=== PATIENT | male | born 1990 | race African-American/Black ===

== ENCOUNTER 2024-01-10 13:03 | Emergency (ER) | payer OTHER ==
[2024-01-10 13:11] VITALS: RESP 18; TEMP 98.1
[2024-01-10] MEDS: ACETAMINOPHEN TAB 500 MG TAB PO STA (13:52)
[2024-01-10] MEDS: IBUPROFEN 800 MG TAB PO STA (13:53)
[2024-01-10] MEDS: CEPHALEXIN 500 MG CAP PO STA (13:53)
--- NOTE | 2024-01-10 13:53 | ED ---
Wound/Laceration HPI - General Chief Complaint: Wound/Laceration Stated Complaint: L Finger Injury Time Seen by Provider: 01/10/24 13:17 Source: patient, RN notes reviewed Mode of arrival: ambulatory Limitations: no limitations - History of Present Illness Initial Comments: This is a 34-year-old male who presents to the emergency department for an injury to his left fourth finger. Patient was cutting steak 3 days ago causing an avulsion to the tip of the left fourth finger. He did not have this evaluated at that time and has since had increasing pain. Also reports a cough and congestion starting today and would like to be tested for COVID. He did just go to check into [facility] and has been around other sick individuals there. Denies any fevers, chills, chest pain, or shortness of breath. - Related Data Previous Rx's Medication Instructions Recorded Cephalexin [Keflex] 500 mg PO Q6HR 7 Days #28 cap 01/10/24 Nirmatrelvir/Ritonavir [Paxlovid 1 pack PO BID 5 Days #30 tab 01/10/24 300-100 mg Dose Pack] Allergies Allergy/AdvReac Type Severity Reaction Status Date / Time No Known Allergies Allergy Verified 01/10/24 13:05 Review of Systems ROS Statement: Those systems with pertinent positive or pertinent negative responses have been documented in the HPI. ROS Other: All systems not noted in ROS Statement are negative. Past Medical History Past Medical History: No Reported History Past Surgical History: Hernia Repair Smoking Status: Never smoker Past Alcohol Use History: Occasional Past Drug Use History: Cocaine General Exam Limitations: no limitations General appearance: alert, in no apparent distress Head exam: Present: atraumatic, normocephalic, normal inspection Respiratory exam: Present: normal lung sounds bilaterally. Absent: respiratory distress, wheezes, rales, rhonchi, stridor Cardiovascular Exam: Present: regular rate, normal rhythm, normal heart sounds. Absent: systolic murmur, diastolic murmur, rubs, gallop, clicks Neurological exam: Present: alert, oriented X3, CN II-XII intact Psychiatric exam: Present: normal affect, normal mood Skin exam: Present: other (Skin avulsion to the tip of the left fourth finger. Mild surrounding swelling and erythema. Overlying tenderness.) Course Vital Signs 01/10/24 01/10/24 13:05 15:44 Temperature 98.1 F Pulse Rate 79 66 Respiratory 18 18 Rate Blood Pressure 125/73 115/66 O2 Sat by Pulse 97 98 Oximetry Medical Decision Making - Medical Decision Making This is a 34 year old male who presents to the emergency department for a finger injury and cough. Was pt. sent in by a medical professional or institution? @ -[facility] Did you speak to anyone other than the patient for history? @ -No Did you review nursing and triage notes? @ -Yes, and I agree, it is accurate with regards to the patient's symptoms. Were old charts reviewed? @ -No Differential Diagnosis? @ -Differential Cough: Influenza, Covid, RSV, croup, allergic rhinitis, GERD, pneumonia, bronchitis, COPD, viral pharyngitis, streptococcal pharyngitis, this is not meant to be an all-inclusive list. EKG interpreted by me (3pts min.)? @ -Not obtained X-rays interpreted by me (1pt min.)? @ -Chest x-ray obtained, my interpretation identifies no localized consolidations or infiltrates. CT interpreted by me (1pt min.)? @ -Not obtained U/S interpreted by me (1pt. min.)? @ -Not obtained What testing was considered but not performed? (CT, X-rays, U/S, labs)? Why? @ -None What meds were considered but not given? Why? @ -None Did you discuss the management of the patient with other professionals? @ -No Did you reconcile home meds? @ -No Was smoking cessation discussed for >3mins.? @ -No Was critical care preformed (if so, how long)? @ -No Were there social determinants of health that impacted care today? How? (Homelessness, low income, unemployed, alcoholism, drug addiction, transportation, low edu. Level, literacy, decrease access to med. care, fpc, rehab)? @ -No Was there de-escalation of care discussed even if they declined? (Discuss DNR or withdrawal of care, Hospice)? @ -No What co-morbidities impacted this encounter? (DM, HTN, Smoking, COPD, CAD, Cancer, CVA, Hep., AIDS, mental health diagnosis, sleep apnea, morbid obesity)? @ -None Was patient admitted / discharged? @ -Discharged. Chest x-ray reveals no acute process. Patient is positive for COVID-19. His finger had a small avulsion injury. This was healing, however there was concern about him developing an infection as there was some swelling and surrounding erythema. He also had a fair amount of discomfort to this area. Tetanus vaccine is up-to-date. Keflex prescribed to treat developing cellulitis. Discussed the possibility of antiviral management for COVID with the patient and he requested to proceed. Paxlovid prescribed for further management of COVID. Patient discharged back to [facility] in stable condition. Case discussed with ED attending Dr. Tsang. Return precautions reviewed in depth, the patient is instructed to return to the emergency department with any new, worsening, or concerning symptoms. Patient verbalized understanding. Undiagnosed new problem with uncertain prognosis? @ -None Drug Therapy requiring intensive monitoring for toxicity (Heparin, Nitro, Insulin, Cardizem)? @ -None Were any procedures done? @ -None Diagnosis/symptom? @ -Cellulitis, COVID-19 Acute, or Chronic, or Acute on Chronic? @ -Acute Uncomplicated (without systemic symptoms) or Complicated (systemic symptoms)? @ -Uncomplicated Side effects of treatment? @ -None Exacerbation, Progression, or Severe Exacerbation] @ -Not applicable Poses a threat to life or bodily function? @ -No - Lab Data Lab Results 01/10/24 Range/Units 13:47 Influenza Type A (PCR) Not Detected (Not Detectd) Influenza Type B (PCR) Not Detected (Not Detectd) RSV (PCR) Not Detected (Not Detectd) SARS-CoV-2 (PCR) Detected A (Not Detectd) - Radiology Data Radiology results: report reviewed, image reviewed Disposition Clinical Impression: COVID-19, Cellulitis, finger Disposition: HOME SELF-CARE Instructions (If sedation given, give patient instructions): Coronavirus Disease 2019 (COVID-19), Cellulitis (ED), How to Recover from COVID-19 at Home ( ED) Additional Instructions: Return to the emergency department with any new, worsening, or concerning symptoms. Take the antibiotic as prescribed for 7 days. Take the Paxlovid as prescribed for 5 days. Follow up with your primary care provider in 1-2 days. Prescriptions: Cephalexin [Keflex] 500 mg PO Q6HR 7 Days #28 cap Nirmatrelvir/Ritonavir [Paxlovid 300-100 mg Dose Pack] 1 pack PO BID 5 Days #30 tab Is patient prescribed a controlled substance at d/c from ED?: No Referrals: None,Stated [Primary Care Provider] - 1-2 days Time of Disposition: 15:19
--- NOTE | 2024-01-10 15:03 | XR ---
EXAMINATION TYPE: XR chest 2V DATE OF EXAM: 01/10/2024 2:05 PM CLINICAL INDICATION: Male, 34 years old with history of Cough; [facility] COMPARISON: Chest radiographs from 01/10/2024 TECHNIQUE: XR chest 2V Frontal view of the chest. FINDINGS: Lungs/Pleura: There is no evidence of pleural effusion, focal consolidation, or pneumothorax. Pulmonary vascularity: Unremarkable. Heart/mediastinum: Cardiomediastinal silhouette is unremarkable. Musculoskeletal: No acute osseous pathology. IMPRESSION: No acute cardiopulmonary disease/process. [facility], , 01/10/2024 3:01 PM
[2024-01-10 15:48] VITALS: BP 115/66; PULSE 66
== END 2024-01-10 15:48 | disposition home or self-care (01) ==
LOC: EC 13:03
CPT/HCPCS: 71046; 87636; 99283